=== PATIENT | male | born 1985 | race Caucasian/White ===

== ENCOUNTER 2016-12-07 03:22 | Emergency (ER) | payer OTHER ==
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
== END 2016-12-07 05:58 | disposition home or self-care (01) ==
LOC: CED 03:22
DX: S01.112A Laceration without foreign body of left eyelid and periocular area, initial encounter (principal); W45.8XXA Other foreign body or object entering through skin, initial encounter; Y92.9 Unspecified place or not applicable
CPT/HCPCS: 12013; 70450; 70486; 72040; 90471; 90715; 99284

== ENCOUNTER 2016-12-14 11:00 | Inpatient (IN) | payer OTHER ==
[~2016-12-14] VITALS: Ht 170.2 cm; Wt 62.1 kg
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
--- NOTE | ~2016-12-14 | PN ---
Unit #: [id number] #: [id number] Patient: YULIA DIANE [id number] [facility] [address] [place] [address] [id number] I MR#: [id number] NAME: YULIA DIANE ROOM: 80 Age: 31 Sex: M Admission Date: 12/14/2016 : 1985 Attending Physician: Richi Bender M.D. Admitting Physician: Richi Bender M.D. Primary Care Physician: Primary Care Physician Nina NAILS PROGRESS NOTES DATE 12/16/2016 DISCUSSION The patient is active within therapeutic milieu. He is pleasant and cooperative in his interactions with peers and staff and his detox continues uneventfully. Dictated by... Richi Bender M.D. CB/tamera TD: 12/16/2016 23:23 JOB #: [id number] JAQUI PROGRESS NOTES Page 1 of 1 X Richi Bender MD X PROGRESS NOTE
--- NOTE | ~2016-12-14 | PA ---
Unit #: [id number] #: [id number] Patient: YULIA DIANE [id number] [facility] [address] [place] [address] [id number] I MR#: [id number] NAME: YULIA DIANE ROOM: 80 Age: 31 Sex: M Admission Date: 12/14/2016 : 1985 Date of Assessment: 12/14/2016 Attending Physician: Richi Bender M.D. Admitting Physician: Richi Bender M.D. Primary Care Physician: Primary Care Physician No PSYCHIATRIC ASSESSMENT IDENTIFYING INFORMATION The patient is a 31-year-old male admitted for alcohol detox. CHIEF COMPLAINT I want to stop drinking INFORMANT The patient and chart RELIABILITY Good HISTORY OF PRESENT ILLNESS The patient is a 31-year-old male last admitted to this facility in March of 2016. He returns stating a wish to stop using alcohol. The patient reports that he is drinking a fifth of vodka of vodka on a daily basis. The patient reports that following his last discharge from this facility he looked for work. He attended three AA meeting but otherwise did not attend to any chemical dependence treatment followup. The patient does not speak [place]ese and is interviewed with the help of an u.[employer] revenue officer. For more complete history of present illness please refer to previous dictation. PAST PSYCHIATRIC HISTORY Reviewed no changes. PAST MEDICAL HISTORY Reviewed no changes. MEDICATIONS None. ALLERGIES None. FAMILY HISTORY Reviewed no changes. SOCIAL HISTORY Reviewed no changes. MENTAL STATUS EXAMINATION At this time reveals the patient to be well-developed, well-nourished Unit #: [id number] #: [id number] Patient: YULIA DIANE male appearing stated age. He is in no apparent physical distress at the time of this examination. He is awake, alert, and oriented in all spheres. His mood is euthymic. His affect congruent. Speech is generally relevant and coherent. There are no gross deficits in memory or cognition noted. Intelligence is judged to be in the average range based on fund of knowledge. The patient is cooperative throughout the interview. He denies current suicidal or homicidal ideation or psychotic features. Judgment and insight appear to be intact. ASSETS AND LIABILITIES ASSETS: Motivation for change. LIABILITIES: Unemployment, lack of resources, poor [place]ese skills. DIAGNOSTIC IMPRESSION Alcohol use disorder. TREATMENT PLAN The patient remains hospitalized for safety and stabilization. A routine detoxification protocol for alcohol has been initiated. The patient will participate in appropriate tovar and milieu activities with an estimate length of stay in the hospital of three to five days. Dictated by... Richi Bender M.D. CISCO/tamera TD: 12/15/2016 23:07 JOB #: [id number] PSYCHIATRIC ASSESSMENT Page 1 of 1 X Richi Bender MD X PSYCHIATRIC ASSESSMENT
--- NOTE | ~2016-12-14 | HP ---
Unit #: [id number] #: [id number] Patient: YULIA DIANE [id number] [place] [address] [id number] I MR#: [id number] NAME: YULIA DIANE ROOM: 80 Age: 31 Sex: M Admission Date: 12/14/2016 : 1985 Attending Physician: Richi Bender M.D. Admitting Physician: Richi Bender M.D. Primary Care Physician: Primary Care Physician No HISTORY AND PHYSICAL HISTORY OF PRESENT ILLNESS The patient is a 31-year-old male admitted to [facility] on 12/14/2016 to detox from alcohol. History was obtained with a use of medical director/head team physician. PAST MEDICAL HISTORY The patient denies. PAST SURGICAL HISTORY The patient denies. SOCIAL HISTORY He is unemployed. He lives with his mother. He smokes 15 cigarettes per day and drinks 30 beers per day. FAMILY MEDICAL HISTORY Noncontributory. ALLERGIES No known drug allergies. CURRENT MEDICATIONS The patient is not on any home medications. REVIEW OF SYSTEMS CONSTITUTIONAL: No fever or chills. HEENT: Denies any sore throat, ear pain or runny nose. CARDIOVASCULAR: Denies chest pain, irregular heart rhythm or palpitations. CHEST: Denies shortness of breath or cough. No hemoptysis. GASTROINTESTINAL: Denies nausea, vomiting, diarrhea or chronic constipation. ENDOCRINE: Denies history of increased thirst or urination. No recent significant weight loss or gain. GENITOURINARY: Denies dysuria, frequency, or hematuria. SKIN: Denies any rashes. HEMATOLOGIC: Denies history of increased bleeding or bruising. MUSCULOSKELETAL: Denies any hot, swollen joints. No generalized muscle pain. NEUROLOGIC: Denies problems with vision or speech. No frequent, severe headaches. No numbness, tingling or weakness in any extremities. Denies loss of bladder or bowel control. PHYSICAL EXAM GENERAL: He is awake, alert and oriented in no acute distress. Unit #: [id number] #: [id number] Patient: YULIA DIANE VITAL SIGNS: Temperature 98.4, heart rate 82, respiration 20, blood pressure 141/90. HEIGHT: 5'7". WEIGHT: 137 pounds. SKIN: Warm and dry without rash or lesion. HEENT: Normocephalic. TMs not viewed. Oral and nasal passages clear. Conjunctivae clear. PERRLA. EOMs intact. NECK: Supple without lymphadenopathy or thyromegaly. HEART: Regular rate and rhythm without murmur. LUNGS: Clear. ABDOMEN: Soft, nontender. : Not done. EXTREMITIES: No evidence of cyanosis, clubbing or edema. Moves all without focal deficit. NEUROLOGICAL: Grossly within normal limits. Cranial Nerves: II: Visual barragan are intact. III, IV AND : Extraocular movements are intact. Pupils are equal, round and reactive to light. V: Facial sensation is grossly normal. VII: Facial movements and expression are normal. VIII: Auditory acuity grossly intact. IX, X: Uvula is midline. Phonation is normal. XI: Patient shrugs shoulders and turns head normally. XII: Tongue protrudes in the midline. Sensory and Motor Function: Sensory and motor sensation is grossly normal. Motor: moves all extremities well. IMPRESSION 1. Psychiatric admission. 2. Alcohol abuse. RECOMMENDATIONS Psychiatric per psychiatrist. MEDICAL: No contraindication to participate in facility activities. MEDICAL PROGNOSIS Good. MEDICAL CONDITION Stable. Dictated by... Pino Henriquez/tamera TD: 12/16/2016 01:58 JOB #: [id number] Unit #: [id number] #: [id number] Patient: YULIA DIANE HISTORY AND PHYSICAL Page 1 of 1 X ANTONY GONZALEZ APRN HISTORY AND PHYSICAL
--- NOTE | ~2016-12-14 | DS ---
Unit #: [id number] #: [id number] Patient: YULIA DIANE [id number] [facility] [address] [place] [address] [id number] I MR#: [id number] NAME: YULIA DIANE ROOM: [facility] Age: 31 Sex: M Admission Date: 12/14/2016 : 1985 Discharge Date: 12/18/2016 Attending Physician: Richi Bender M.D. Primary Care Physician: Primary Care Physician No DISCHARGE SUMMARY REASON FOR ADMISSION The patient is a 31-year-old, male, admitted for alcohol detox. HOSPITAL COURSE The patient was admitted to the [facility] unit and placed on routine detoxification protocol for alcohol. His detox was an uneventful one. He was active within the therapeutic milieu. He requested a vocational rehabilitation referral and it was so ordered. Discharge to take place on 12/18/2016. FINAL DIAGNOSES Alcohol use disorder. DISPOSITION ON DISCHARGE The patient is discharged on no psychotropic or other medications. FOLLOWUP Followup will take place through the auspices of community mental health resources. PROGNOSIS The patient's prognosis is considered fair. Dictated by... Richi Bender M.D. CISCO/sintia TD: 12/18/2016 15:07 JOB #: [id number] DISCHARGE SUMMARY Page 1 of 1 X Richi Bender MD X DISCHARGE SUMMARY
--- NOTE | ~2016-12-14 | PN ---
Unit #: [id number] #: [id number] Patient: YULIA DIANE [id number] [facility] [address] [place] [address] [id number] I MR#: [id number] NAME: YULAI DIANE ROOM: 80 Age: 31 Sex: M Admission Date: 12/14/2016 : 1985 Attending Physician: Richi Bender M.D. Admitting Physician: Richi Bender M.D. Primary Care Physician: Primary Care Physician Nina NAILS PROGRESS NOTES DATE 12/17/2016 DISCUSSION The patient is in somewhat brighter spirits today. His Arabic seems better than he had previously let on. Whatever the case, he is participating within the therapeutic milieu and his detox should be completed by tomorrow. He has requested a voc rehab referral which will be ordered. Dictated by... Richi Bender M.D. CISCO/karan TD: 12/17/2016 15:26 JOB #: [id number] JAQUI PROGRESS NOTES Page 1 of 1 X Richi Bender MD PROGRESS NOTE
[2016-12-16 09:42] LABS: URINE APPEARANCE CLEAR; URINE BILIRUBIN NEG (NEG); URINE BLOOD NEG (NEG); URINE COLOR YELLOW; URINE GLUCOSE NEG (NEG); URINE KETONE NEG (NEG); URINE LEUKOCYTE ESTERASE TRACE (NEG); URINE NITRATE NEG (NEG); URINE PROTEIN NEG (NEG); URINE SPECIFIC GRAVITY 1.006 (1.003-1.035); URINE UROBILINOGEN 0.2 MG/DL (NEG)
[2016-12-16 09:44] LABS: URBCS1 AUWI 0-2 /[HPF] (0-2); URINE BACTERIA AUWI NEG (NEGATIVE); URINE SQUAMOUS EPITHELIAL CELL NONE SEEN /[HPF]; UWBCS1 AUWI 0-2 (0-5)
[2016-12-16 10:08] LABS: AMPHETAMINE NEG (NEG); BARBITURATES NEG (NEG); BENZODIAZEPINES NEG (NEG); COCAINE NEG (NEG); MARIJUANA NEG (NEG); OPIATES NEG (NEG); TRICYCLIC ANTIDEPRESSANTS NEG (NEG); U METHADONE NEG (NEG)
== END 2016-12-18 15:34 | DRG 897 ==
LOC: P1E 15:19
PROVIDERS: Specialist
PROC: HZ2ZZZZ Detoxification Services for Substance Abuse Treatment (ICD-10-PCS; principal; 2016-12-14)
DX: F10.20 Alcohol dependence, uncomplicated (principal); Z56.0 Unemployment, unspecified
CPT/HCPCS: 80307; 81003